=== PATIENT | male | born 1995 | race Hispanic/Latino ===

== ENCOUNTER 2023-01-17 15:28 | Emergency (ER) | payer OTHER ==
[~2023-01-17] VITALS: Ht 167.6 cm; Wt 72.6 kg
[2023-01-17 18:07] VITALS: BP 122/75
== END 2023-01-17 18:09 | disposition home or self-care (01) ==
LOC: ED 15:28 → EDBD 15:30 → ED 15:30
DX: S81.011A Laceration without foreign body, right knee, initial encounter (principal); W17.89XA Other fall from one level to another, initial encounter